=== PATIENT | female | born 1975 | race Caucasian/White ===

== ENCOUNTER 2016-09-10 21:42 | Emergency (ER) | payer OTHER ==
[2016-09-10 22:49] LABS: BILIRUBIN,URINE NEG (NEG); CLARITY,URINE CLOUDY; COLOR,URINE YELLOW; GLUCOSE,URINE 100 mg/dL (NEG); NITRITE,URINE NEG (NEG); UROBILINOGEN,URINE 0.2 mg/dL (0.2 mg/dL)
[2016-09-10 22:50] LABS: BACTERIA,URINE 0 /HPF (0-FEW); SQUAMOUS EPITHELIAL CELL,UR FEW /LPF
[2016-09-10 22:52] LABS: HYALINE CASTS, URINE FEW /HPF
[2016-09-10 22:53] LABS: U PREG PATIENT NEGATIVE (NEG)
[2016-09-10] MEDS ORDERED: NAPROXEN 500 MG TABLET PO ONE (23:00)
[2016-09-10] MEDS ORDERED: CYCLOBENZAPRINE 10 MG TABLET. PO ONE (23:00)
--- NOTE | 2016-09-10 23:33 | RAD ---
PQRS STATEMENT: One or more of the following in the visualized dose reduction techniques were utilized for this study: 1. Automatic exposure control, 2. Adjustment of the mA and/or kV according to patient size, 3. Use of iterative reconstruction technique CT ABDOMEN/PELVIS Indication:[id number] Severe left sided flank pain today. No priors. Technique: Multiple contiguous axial images were obtained through the abdomen and pelvis. Coronal and sagittal reformations were created. Findings: The kidneys are normal in size. There is no evidence for hydronephrosis. There is no nephrolithiasis or ureteral calculus. Ureters are not dilated. The urinary bladder is unremarkable. The heart size is normal. The lung bases are clear.Evaluation of the abdominal viscera is limited in the absence of IV contrast. The liver and spleen are normal in size. The gallbladder is nondistended. There is inflammatory change surrounding the tail of the pancreas. No loculated fluid collection. There is no abdominopelvic ascites. Abdominal aorta is normal in caliber. .The bowel loops are normal in caliber. The appendix is normal.No destructive osseus lesions are identified. Impression: There is inflammatory change about the tail of the pancreas. This is suggestive of acute pancreatitis. No evidence for loculated fluid collection or abscess. Electronically signed by: Noah Mcdaniel MD (09/10/2016 11:30 PM) [facility]
[2016-09-11 00:09] LABS: BASO % 0 % (0-3); EOS # 0.4 x10^3/uL (0.0-0.7); EOS % 4 % (0-3); HEMATOCRIT 35.9 % (36.0-47.0); HEMOGLOBIN 12.1 g/dL (12.0-15.5); LYMPH % 33 % (24-48); MEAN CORPUSCULAR HEMOGLOBIN 27 pg (25-35); MEAN CORPUSCULAR HGB CONC 34 g/dL (31-37); MEAN CORPUSCULAR VOLUME 82 fL (79-100); MONO # 0.9 x10^3/uL (0.0-1.1); MONO % 10 % (0-9); NEUT # 4.8 x10^3uL (1.8-7.7); NEUT % 52 % (31-73); PLATELET COUNT 254 x10^3/uL (140-400); RED CELL DISTRIBUTION WIDTH 13.6 % (11.5-14.5); WHITE BLOOD COUNT 9.2 x10^3/uL (4.0-11.0)
[2016-09-11] MEDS ORDERED: ONDANSETRON PF 4 MG/2 ML VIAL. IV ONE (00:15)
[2016-09-11] MEDS ORDERED: IV NORMAL SALINE 1,000ML 1,000 ML IV SCH (00:15)
[2016-09-11 00:22] LABS: ALBUMIN 3.8 g/dL (3.4-5.0); CALCIUM 8.7 mg/dL (8.5-10.1); GFR 61.7; TOTAL BILIRUBIN 0.2 mg/dL (0.2-1.0); TOTAL PROTEIN 7.7 g/dL (6.4-8.2)
[2016-09-11] MEDS ORDERED: ONDA4TAB10 SL (02:03)
[2016-09-11] MEDS ORDERED: HYDR-971 PO (02:03)
--- NOTE | 2016-09-11 02:03 | PHYS DOC ---
Past History Past Medical History: Pancreatitis, Other Alcohol Use: None Drug Use: None Adult General Chief Complaint Chief Complaint: LOWER BACK PAIN OR INJURY HPI HPI Patient is a 40 year old female who presents with complaint of left-sided back pain. Patient states that she has been having pain over the past 2 weeks and states that her pain has progressively gotten worse. Patient states the pain is along her left flank and patient currently rates her pain as 7 out of 10. Patient states she's been taking ibuprofen and Tylenol at home with no relief. Patient denies any associated fevers or vomiting but states that she has had associated nausea. Patient states that she has had history of pancreatitis 2 years ago which resolved spontaneously. Patient denies any urinary symptoms or fevers currently. Review of Systems Review of Systems Constitutional: Denies fever or chills [] Eyes: Denies change in visual acuity, redness, or eye pain [] HENT: Denies nasal congestion or sore throat [] Respiratory: Denies cough or shortness of breath [] Cardiovascular: No additional information not addressed in HPI [] GI: Denies abdominal pain, nausea, vomiting, bloody stools or diarrhea [] : Denies dysuria or hematuria [] Musculoskeletal: Denies back pain or joint pain [] Integument: Denies rash or skin lesions [] Neurologic: Denies headache, focal weakness or sensory changes [] Endocrine: Denies polyuria or polydipsia [] Current Medications Current Medications Current Medications Medications (Trade) Dose Ordered Sig/Arley Start Time Stop Time Status Last Admin Dose Admin Cyclobenzaprine HCl (Flexeril) 10 mg 1X ONCE 09/10/16 23:00 09/10/16 23:01 DC 09/10/16 23:25 10 MG Naproxen (Naprosyn) 500 mg 1X ONCE 09/10/16 23:00 09/10/16 23:01 DC 09/10/16 23:25 500 MG Ondansetron HCl (Zofran) 4 mg 1X ONCE 09/11/16 00:15 09/11/16 00:16 DC 09/11/16 00:09 4 MG Sodium Chloride 1,000 ml @ 1,000 mls/hr Q1H 09/11/16 00:15 09/11/16 01:15 DC 09/11/16 00:09 1,000 MLS/HR Allergies Allergies Allergies Coded Allergies Type Severity Reaction Last Updated Verified Opioids - Morphine Analogues Allergy Intermediate Itching 09/10/16 Yes Opioids-Meperidine and Related Allergy Intermediate ITHCING 09/10/16 Yes Opioids-Methadone and Related Allergy Intermediate Itching 09/10/16 Yes Physical Exam Physical Exam Constitutional: Alert, afebrile, appears in moderate discomfort. [] HENT: Normocephalic, atraumatic, bilateral external ears normal, oropharynx moist, no oral exudates, nose normal. [] Eyes: PERRLA, EOMI, conjunctiva normal, no discharge. [] Neck: Normal range of motion, no tenderness, supple, no stridor. [] Cardiovascular:Heart rate regular rhythm, no murmur [] Lungs & Thorax: Bilateral breath sounds clear to auscultation [] Abdomen: Bowel sounds normal, soft, epigastric tenderness to palpation, no masses, no pulsatile masses. [] Skin: Warm, dry, no erythema, no rash. [] Back: No midline tenderness, no CVA tenderness. [] Extremities: No tenderness, no cyanosis, no clubbing, ROM intact, no edema. [] Neurologic: Alert and oriented X 3, normal motor function, normal sensory function, no focal deficits noted. [] Current Patient Data Vital Signs Vital Signs Date Time Temp Pulse Resp B/P (MAP) Pulse Ox O2 Delivery O2 Flow Rate FiO2 09/11/16 01:12 76 18 99/60 (73) 98 Room Air 09/10/16 21:50 98.2 Lab Results Laboratory Tests Test 09/10/16 22:10 09/10/16 23:56 Urine Collection Type Unknown Urine Color Yellow Urine Clarity Cloudy Urine pH 6.0 Urine Specific Rock 1.025 Urine Protein Neg (NEG-TRACE) Urine Glucose (UA) 100 mg/dL (NEG) Urine Ketones (Stick) Neg mg/dL (NEG) Urine Blood Neg (NEG) Urine Nitrite Neg (NEG) Urine Bilirubin Neg (NEG) Urine Urobilinogen Dipstick 0.2 mg/dL (0.2 mg/dL) Urine Leukocyte Esterase Trace (NEG) Urine RBC 11-20 /HPF (0-2) Urine WBC 5-10 /HPF (0-4) Urine Squamous Epithelial Cells Few /LPF Urine Bacteria 0 /HPF (0-FEW) Urine Hyaline Casts Few /HPF Urine Mucus Marked /LPF Urine Test Negative (NEG) White Blood Count 9.2 x10^3/uL (4.0-11.0) Red Blood Count 4.40 x10^6/uL (3.50-5.40) Hemoglobin 12.1 g/dL (12.0-15.5) Hematocrit 35.9 % (36.0-47.0) L Mean Corpuscular Volume 82 fL (79-100) Mean Corpuscular Hemoglobin 27 pg (25-35) Mean Corpuscular Hemoglobin Concent 34 g/dL (31-37) Red Cell Distribution Width 13.6 % (11.5-14.5) Platelet Count 254 x10^3/uL (140-400) Neutrophils (%) (Auto) 52 % (31-73) Lymphocytes (%) (Auto) 33 % (24-48) Monocytes (%) (Auto) 10 % (0-9) H Eosinophils (%) (Auto) 4 % (0-3) H Basophils (%) (Auto) 0 % (0-3) Neutrophils # (Auto) 4.8 x10^3uL (1.8-7.7) Lymphocytes # (Auto) 3.0 x10^3/uL (1.0-4.8) Monocytes # (Auto) 0.9 x10^3/uL (0.0-1.1) Eosinophils # (Auto) 0.4 x10^3/uL (0.0-0.7) Basophils # (Auto) 0.0 x10^3/uL (0.0-0.2) Sodium Level 139 mmol/L (136-145) Potassium Level 4.0 mmol/L (3.5-5.1) Chloride Level 103 mmol/L (98-107) Carbon Dioxide Level 27 mmol/L (21-32) Anion Gap 9 (6-14) Blood Urea Nitrogen 25 mg/dL (7-20) H Creatinine 1.0 mg/dL (0.6-1.0) Estimated GFR (Cockcroft-Gault) 61.7 BUN/Creatinine Ratio 25 (6-20) H Glucose Level 120 mg/dL (70-99) H Calcium Level 8.7 mg/dL (8.5-10.1) Total Bilirubin 0.2 mg/dL (0.2-1.0) Aspartate Amino Transferase (AST) 15 U/L (15-37) Alanine Aminotransferase (ALT) 33 U/L (14-59) Alkaline Phosphatase 82 U/L (46-116) Total Protein 7.7 g/dL (6.4-8.2) Albumin 3.8 g/dL (3.4-5.0) Albumin/Globulin Ratio 1.0 (1.0-1.7) Lipase 1908 U/L (73-393) H EKG EKG Not performed [] Radiology/Procedures Radiology/Procedures [address] [address] IMAGING REPORT Signed PATIENT: KRISTINE CASTILLO ACCOUNT: [id number] : 1975 LOCATION: ER AGE: 40 SEX: F EXAM STATUS: PRE ER ORD. PHYSICIAN: PEDRITO RAMIREZ MD REASON: left-sided flank pain, rule out kidney stone PROCEDURE: CT ABDOMEN PELVIS WO CONTRAST PQRS STATEMENT: One or more of the following in the visualized dose reduction techniques were utilized for this study: 1. Automatic exposure control, 2. Adjustment of the mA and/or kV according to patient size, 3. Use of iterative reconstruction technique CT ABDOMEN/PELVIS Indication:[id number] Severe left sided flank pain today. No priors. Technique: Multiple contiguous axial images were obtained through the abdomen and pelvis. Coronal and sagittal reformations were created. Findings: The kidneys are normal in size. There is no evidence for hydronephrosis. There is no nephrolithiasis or ureteral calculus. Ureters are not dilated. The urinary bladder is unremarkable. The heart size is normal. The lung bases are clear.Evaluation of the abdominal viscera is limited in the absence of IV contrast. The liver and spleen are normal in size. The gallbladder is nondistended. There is inflammatory change surrounding the tail of the pancreas. No loculated fluid collection. There is no abdominopelvic ascites. Abdominal aorta is normal in caliber. .The bowel loops are normal in caliber. The appendix is normal.No destructive osseus lesions are identified. Impression: There is inflammatory change about the tail of the pancreas. This is suggestive of acute pancreatitis. No evidence for loculated fluid collection or abscess. Electronically signed by: Noah Mcdaniel MD (09/10/2016 11:30 PM) [facility] DICTATED AND SIGNED BY: NOAH MCDANIEL MD DATE: 09/10/16 9232 CC: PEDRITO RAMIREZ MD ~ [] Course & Med Decision Making Course & Med Decision Making Pertinent Labs and Imaging studies reviewed. (See chart for details) The patient's workup showed evidence of acute pancreatitis. The patient was initially treated with oral Naprosyn and Flexeril when initial symptoms were thought to be musculoskeletal was converted to IV access and started on IV fluids. The patient states that she has allergies to opioids, however on further questioning, the patient states that she has family history of opioid addiction and she lists opioids as an allergy as she does not want to be given these for fear of possible addiction. For this reason, opioid medication was initially withheld. The patient states after receiving Flexeril and Naprosyn that her pain is no better at this time. The patient also states that she has taken Tylenol at home with no relief in symptoms. I spoke extensively with the patient regarding her plan of care. I offered admission to the hospital for further workup as to the cause of her pancreatitis. As we do not have a contact acid plant operator helper at [facility], I stated that if she would need to be admitted that [facility]. After much deliberation, the patient expressed that she wanted to go home and not be admitted to the hospital. Given the patient's vital signs are stable in no severe acute etiology was found on today's workup, I do not feel this to be unreasonable. I did express concern however for being able to provide adequate pain control at home. The patient stated after thinking hard about her options that she would like to have a small prescription of hydrocodone to try to help with pain control. I advised that the patient focus on oral hydration and patient was referred to Dr. Hills of gastroenterology. I also recommended strongly that the patient follow-up with her primary doctor tomorrow which she has agreed. Advised return to the emergency department for any worsening symptoms. Patient voiced understanding and in agreement with treatment plan. Dragon Disclaimer Dragon Disclaimer This chart was dictated in whole or in part using Voice Recognition software in a busy, high-work load, and often noisy Emergency Department environment. It may contain unintended and wholly unrecognized errors or omissions. Departure Departure: Impression: Primary Impression: Acute pancreatitis Disposition: 01 HOME, SELF-CARE Condition: STABLE Referrals: PCP,SABINE (PCP) EWA HILLS MD Patient Instructions: Acute Pancreatitis Additional Instructions: Follow-up with your primary doctor in the next 1-2 days for reevaluation. Return to the emergency department for any worsening symptoms. Scripts Ondansetron (ZOFRAN ODT) 4 Mg Tab.rapdis 1 TAB SL Q8HRS Y for NAUSEA/VOMITING, #15 TAB Prov: PEDRITO RAMIREZ MD 09/11/16 Hydrocodone Bit/Acetaminophen (NORCO 5-325 TABLET) 1 Each Tablet 1 TAB PO Q4-6HRS Y for PAIN, #15 TAB 0 Refills Prov: PEDRITO RAMIREZ MD 09/11/16 Problem Qualifiers Primary Impression: Acute pancreatitis Pancreatitis type: unspecified pancreatitis type Acute pancreatitis complication: unspecified Qualified Codes: K85.90 - Acute pancreatitis without necrosis or infection, unspecified PEDRITO RAMIREZ MD Sep 11, 2016 02:03
[2016-09-11 02:09] VITALS: BP 117/61
== END 2016-09-11 02:12 | disposition home or self-care (01) ==
LOC: ER 21:42
DX: K85.90 Acute pancreatitis without necrosis or infection, unspecified (principal); Z88.5 Allergy status to narcotic agent
CPT/HCPCS: 36415; 74176; 80053; 81001; 81025; 83690; 85027; 87086; 96361; 96374; 99285; J2405; J7030